=== PATIENT | male | born 1980 ===

== ENCOUNTER 2017-09-14 20:43 | Emergency (ER) | payer MEDICAID, OTHER ==
[~2017-09-14] VITALS: Ht 180.3 cm; Wt 85.9 kg
[2017-09-14 21:04] VITALS: BP 135/78
[2017-09-14] MEDS ORDERED: proparacaine 0.5% ophthalmic drops 15ml RIGHTEYE ONE (21:25)
== END 2017-09-14 22:06 | disposition home or self-care (01) ==
LOC: ER 20:44
DX: H11.31 Conjunctival hemorrhage, right eye (principal)
CPT/HCPCS: 65205; 99283; 99284

== ENCOUNTER 2020-03-08 14:16 | Emergency (ER) | payer OTHER ==
[~2020-03-08] VITALS: Ht 177.8 cm; Wt 85.0 kg
[2020-03-08 14:53] VITALS: BP 143/105
[2020-03-08] MEDS ORDERED: ketorolac tromethamine 15mg/ml inj. IM ONE (16:05)
[2020-03-08] MEDS ORDERED: CYCL-1 PO (16:51)
== END 2020-03-08 18:36 | disposition home or self-care (01) ==
LOC: ER 14:16
DX: S16.1XXA Strain of muscle, fascia and tendon at neck level, initial encounter (principal); M54.5 Low back pain; M54.2 Cervicalgia; R25.2 Cramp and spasm; G89.29 Other chronic pain; Z79.899 Other long term (current) drug therapy; V89.2XXA Person injured in unspecified motor-vehicle accident, traffic, initial encounter; Y93.89 Activity, other specified; Y92.89 Other specified places as the place of occurrence of the external cause; Y99.8 Other external cause status
CPT/HCPCS: 72050; 72125; 96372; 99284; J1885